=== PATIENT | female | born 2000 ===

== ENCOUNTER 2021-06-26 14:00 | Outpatient (REF) | payer MEDICAID, SELFPAY ==
[2021-06-26 21:50] LABS: Abs Immature Grans 0.06 10^3/uL (0.0-0.06); Absolute Lymphocyte Count 1.66 10^3/uL (1.2-3.4); Basophils % 0.3; Eosinophils % 0.1; HCT 42.4 % (36.0-46.0); HGB 13.8 g/dL (11.2-15.7); Immature Grans % 0.3; Lymphocytes % 8.2; MCHC 32.5 % (32.0-36.0); MCV 92.2 fL (80-95); MPV 10.6 fL (8.0-11.0); Monocytes % 4.4; Neutrophils % 86.7; Nucleated RBC 0 %; Platelet Count 265 10^3/uL (130-400); RDW 12.6 % (11.7-14.6); RDW-SD 42.7 fL; WBC 20.21 10^3/uL (4.4-10.8)
[2021-06-26 21:51] LABS: Absolute Basophil Count 0.06 10^3/uL (0.0-0.2); Absolute Eosinophil Count 0.02 10^3/uL (0.0-0.7); Absolute Monocyte Count 0.89 10^3/uL (0.1-0.8); Absolute Neutrophil Count 17.52 10^3/uL (1.2-6.7)
[2021-06-26 22:08] LABS: C-Reactive Protein 0.15 mg/dL (0.0-0.3); NT-proBNP 127 pg/mL (<300)
[2021-06-28 14:41] LABS: COVID-19 RT-PCR UVMMC Result Negative (Negative)
== END 2021-06-26 14:01 | disposition home or self-care (01) ==
LOC: LBN 14:00
PROVIDERS: Visit Provider Nurse Practitioner Family
DX: R05 Cough (principal); R06.89 Other abnormalities of breathing; R07.9 Chest pain, unspecified; J06.9 Acute upper respiratory infection, unspecified; Z20.822 Contact with and (suspected) exposure to COVID-19
CPT/HCPCS: U0003; 83880; 85025; 86140

== ENCOUNTER 2021-06-27 14:42 | Outpatient (CLI) | payer MEDICAID, SELFPAY ==
--- NOTE | 2021-06-27 14:15 | DI.RAD_ITS ---
Exam(s) XR CHEST 2V PA LATERAL EXAM: XR CHEST 2V PA LATERAL CLINICAL HISTORY: CHEST PAIN R07.9, COUGH R05. TECHNIQUE: 2D digital imaging was performed. COMPARISON: No exams were available for comparison FINDINGS: Heart size is normal. The mediastinum is not widened. Lungs are clear. No infiltrates nor pleural effusions. IMPRESSION: No acute pulmonary findings. DATA REPOSITORY: RADIATION DOSE DELIVERED:
== END 2021-06-27 15:02 ==
PROVIDERS: Visit Provider Nurse Practitioner Family
DX: R07.9 Chest pain, unspecified (principal); R05 Cough
CPT/HCPCS: 71046